=== PATIENT | male | born 1960 | race Caucasian/White ===

== ENCOUNTER 2017-12-10 10:01 | Outpatient (CLI) | payer OTHER, SELFPAY ==
[2017-12-10 12:10] LABS: ALT 45 U/L (12-78); AST 19 U/L (15-37); Albumin 3.9 g/dL (3.4-5.0); Alkaline Phosphatase 57 U/L (46-116); Anion Gap 6.9 mmol/L (3-11); BUN 17 mg/dL (7-18); Bilirubin, Total 0.4 mg/dL (0.2-1.0); CO2 29.1 mmol/L (21.0-32.0); CREATININE 0.94 mg/dL (0.70-1.30); Calcium 8.8 mg/dL (8.5-10.1); Chloride 104 mmol/L (98-107); Cholesterol 159 mg/dL (50-200); Glucose 96 mg/dL (70-100); HDL Cholesterol 60 mg/dL (40-60); LDL CHOLESTEROL 90 mg/dL (<100); Potassium 4.8 mmol/L (3.5-5.1); Sodium 140 mmol/L (136-145); Total Protein 6.9 g/dL (6.4-8.2); Triglyceride 73 mg/dL (30-150)
== END 2017-12-10 10:21 ==
PROVIDERS: PCP Family Medicine; Visit Provider Family Medicine
DX: Z00.00 Encounter for general adult medical examination without abnormal findings (principal)
CPT/HCPCS: 36415; 80053; 80061; 83721

== ENCOUNTER 2018-12-21 02:39 | Outpatient (CLI) | payer OTHER, SELFPAY ==
[2018-12-21 08:40] LABS: ALT 26 U/L (16-63); AST 13 U/L (15-37); Albumin 3.7 g/dL (3.4-5.0); Alkaline Phosphatase 48 U/L (46-116); Anion Gap 6.9 mmol/L (3-11); BUN 15 mg/dL (7-18); Bilirubin, Total 0.4 mg/dL (0.2-1.0); CO2 30.1 mmol/L (21.0-32.0); CREATININE 0.96 mg/dL (0.70-1.30); Calculated LDL 97 mg/dL; Chloride 106 mmol/L (98-107); Cholesterol 167 mg/dL (50-200); Glucose 103 mg/dL (70-100); HDL Cholesterol 53 mg/dL (40-60); Potassium 4.8 mmol/L (3.5-5.1); Sodium 143 mmol/L (136-145); Total Protein 6.6 g/dL (6.4-8.2); Triglyceride 85 mg/dL (30-150)
== END 2018-12-21 02:59 ==
PROVIDERS: PCP Family Medicine; Visit Provider Family Medicine
DX: Z00.00 Encounter for general adult medical examination without abnormal findings (principal); E78.00 Pure hypercholesterolemia, unspecified
CPT/HCPCS: 36415; 80053; 80061

== ENCOUNTER 2019-02-22 11:03 | Day surgery (SDC) | payer OTHER, SELFPAY ==
--- NOTE | 2019-02-22 06:59 | W.COLOREPORT ---
Date of service: 02/22/19 Time of Service: 12:16 Colonoscopy Report Date of procedure: 02/22/19 Pre-op diagnosis general: Colon CAncer Screening Post-op diagnosis procedure note: other (Polyps, diverticulosis, internal hemorrhoids) Procedure: Colonoscopy with polypectomy by hot snare and cold forceps Surgeon: Ariela Holley Anesthesia proc note operative: other (General/ ASA 3/Irvin Hinkle, URIEL) Estimated blood loss (mL): 5 Pathology: other (Ascending polyps x4, Large polyp at 35 cm, rectal polyp) Complications: None Disposition: same day Indications: The patient is here for Colonoscopy pre-op. He has no family history of colon cancer. He has not had any bowel habit changes. -Discussed colonoscopy bowel prep as well as the procedure. Discussed possible complications of the procedure to include bleeding, pain, perforation, missed small lesion/polyp, sore throat, aspiration and adverse reaction to the medications. Questions were answered to patient?s satisfaction. No guarantees were implied or given. Prep: Miralax/Dulcolax Procedure Start Time: 12:16 Procedure End Time: 13:11 Retraction Time: 48 minutes Findings: 4 small sessile polyps in the ascending polyp Large 3 cm pedunculated polyp at 35 cm rectal polyp <10 mm Procedure Description: After informed consent was obtained the patient was taken to the procedure room and placed in a left decubitous position. Monitors were applied and a time out was done. The patients name, date of , procedure, allergies to medications and metal in their body was reviewed. The patient was then sedated. Once sedated and comfortable a rectal exam was done. External exam was normal. Internal exam revealed a normal sphincter tone and no palpable masses. The prostate felt smooth. The scope was then introduced and retro-flexed. Grade 1 internal hemorrhoids were identified as well as a rectal polyp and blood. The scope was then advanced to the cecum with some difficulty. The patient kept becoming bradychardic and was given Robinal. The TI and appendiceal orifice were identified. The prep was adequate. The scope was then slowly retracted over 48 minutes back into the rectum. Polyps were removed with cold forceps in the ascending colon and rectum. The large polyp was removed in 2 pieces with a hot snare and the mucosa was injected with blue dye. The scope was removed and the patient was woken up and taken back to Same day surgery in stable condition. The patient tolerated the procedure well and there were no immediate complications. Follow up: Follow up will be dependant on the final pathology.
--- NOTE | 2019-02-22 07:00 | W.PM.DSUDISC ---
Discharge Plan Disposition Patient Disposition: HOME Condition: Good Discharge Details Reason For Visit: Colon Cancer screening Attending Provider: Ariela Holley Primary Care Provider: Johann Donald Home Meds and New Rx's Prescriptions: Continued atorvastatin [Lipitor] 10 mg tablet 10 mg PO DAILY Qty: 90 RF: 3 sildenafil [Viagra] 100 mg tablet 100 mg PO PRN MDD 2 tabs Qty: 10 RF: 11 clotrimazole 1 % cream 1 applic TP BID PRN (Reason: rash) Qty: 45 RF: 0 Discontinued polyethylene glycol 3350 17 gram/dose powder 238 g PO ONCE Qty: 238 RF: 0 bisacodyl [Dulcolax (bisacodyl)] 5 mg tablet,delayed release (DR/EC) 5 mg PO ONCE Qty: 4 RF: 0 Discharge Instructions Instructions: Colonoscopy (DC), Colorectal Polyps (DC), Diverticulosis (DC), Hemorrhoids (DC) Additional Instructions: Findings: internal hemorrhoids Multiple polyps Diverticulosis Follow up: depends on pathology results Please call if you develop: fevers >101.5 Nausea or Vomiting Abdominal pain that is not transient DAY SURGERY UNIT POST ENDOSCOPY INSTRUCTIONS 1. Because there will be medication in your system for the next 24 hours, you may feel a little sleepy. Your coordination will be affected. Therefore: a. Do not drive or operate dangerous equipment for 24 hours. b. Do not drink alcohol beverages for 24 hours (not even beer). c. Plan to go home and rest for the day. 2. Generally there are no restrictions on your activity after a day or so has gone by, but you may feel a bit fatigued for a few days. 3 After you arrive home you may have a light meal and return to a normal diet as you can tolerate it without feeling sick to your stomach. 4. After surgery, you may feel pain or discomfort. This should be only transient, but if it persists please contact your doctor. 5. If there are any questions regarding the findings of your procedure, please feel free to contact your doctor. 6. If you are unable to contact your doctor with a problem, contact the hospital at [phone]. 7. Continue all your regular medications unless directed otherwise. I understand the above instructions and have no questions. Signature of Patient or Responsible Adult Escort Date/Time Name of Responsible Adult Escort Signature of Nurse Date/Time Activity:: Activity as Tolerated Diet:: As Tolerated Discharge Orders Discharge Orders: Discharge Order (Routine); Ordered 02/22/19 Ordered By: Ariela Holley DS: Diagnosis Discharge Diagnosis (1) S/P colonoscopy: Status: Acute (2) Colorectal polyps: Status: Acute (3) Internal hemorrhoids without complication: Status: Inactive
[2019-02-22 11:27] VITALS: BP 140/68; PULSE 60; RESP 16; TEMP 36.8; O2SAT 98
[2019-02-22] MEDS: Lactated Ringers 1,000 ML 80 ML IV (11:54)
--- NOTE | 2019-02-22 12:25 | BOWEL_PTH ---
PATIENT: Bolivar Connors LOC: [facility] U#:[id number] AGE/SX: 58/M ROOM: RE02/22/[address]: Ariela Holley MD : 1960 BED: DIS: 02/22/2019 SPEC #: [id number] RECD: 02/22/19 17:23 STATUS: RASHEL RE #: [id number] CHARLEEN: 02/22/19 12:[address]: Ariela Holley DEPT: Surgical Specimen RECD BY: Buffy Atwood ENTERED: 02/22/19 17:25 SP TYPE: Bowel OTHR DR: Johann Donald MD Tissues: 1 - BIOPSY BOWEL 2 - BIOPSY BOWEL 3 - BIOPSY BOWEL Procedures: GROSS AND MICRO LEVEL 4 Comments: [id number]
[2019-02-22] MEDS: Endoscopic Tattoo 5 ML SYR IJ (12:47)
[2019-02-22 13:55] VITALS: BP 144/69; PULSE 58; RESP 16; TEMP 36.4; O2SAT 99
== END 2019-02-22 14:10 | disposition home or self-care (01) ==
LOC: SUR 11:03
PROVIDERS: PCP Family Medicine; Visit Provider Surgery
PROC: 0DJD8ZZ Inspection of Lower Intestinal Tract, Via Natural or Artificial Opening Endoscopic (ICD-10-PCS; CPT 45378; principal; 2019-02-22 12:15)
DX: Z12.11 Encounter for screening for malignant neoplasm of colon (principal); D12.2 Benign neoplasm of ascending colon; D12.6 Benign neoplasm of colon, unspecified; K62.1 Rectal polyp; K57.30 Diverticulosis of large intestine without perforation or abscess without bleeding; K64.0 First degree hemorrhoids; R00.1 Bradycardia, unspecified
CPT/HCPCS: 45385; 45380; 45381; 88305

== ENCOUNTER 2019-12-20 13:15 | Outpatient (REF) | payer OTHER, SELFPAY ==
[2019-12-20 14:02] LABS: HCT 45.5 % (40.0-50.0); HGB 15.2 g/dL (13.5-17.5); MCH 29.5 pg (27.0-33.0); MCHC 33.4 % (32.0-36.0); MCV 88.2 fL (80-95); MPV 11.7 fL (8.0-11.0); Platelet Count 233 10^3/uL (130-400); RBC 5.16 10^6/uL (4.36-5.78); RDW 12.3 % (11.8-14.1); RDW-SD 39.6 fL; WBC 8.18 10^3/uL (4.4-10.8)
[2019-12-20 14:17] LABS: ALT 34 U/L (16-63); AST 15 U/L (15-37); Albumin 4.2 g/dL (3.4-5.0); Alkaline Phosphatase 53 U/L (46-116); Anion Gap 10.6 mmol/L (3-11); BUN 17 mg/dL (7-18); Bilirubin, Total 0.6 mg/dL (0.2-1.0); CO2 27.4 mmol/L (21.0-32.0); Calculated LDL 116 mg/dL (<100); Chloride 104 mmol/L (98-107); Cholesterol 206 mg/dL (<200); Glucose 98 mg/dL (74-106); HDL Cholesterol 59 mg/dL (40-60); Potassium 4.5 mmol/L (3.5-5.1); Sodium 142 mmol/L (136-145); Total Protein 7.7 g/dL (6.4-8.2); Triglyceride 156 mg/dL (<150)
== END 2019-12-20 13:35 ==
LOC: LBN 13:15
PROVIDERS: PCP Family Medicine; Visit Provider Family Medicine
DX: Z00.00 Encounter for general adult medical examination without abnormal findings (principal); E78.00 Pure hypercholesterolemia, unspecified
CPT/HCPCS: 80053; 80061; 85027

== ENCOUNTER 2020-04-13 01:55 | Outpatient (CLI) | payer OTHER, SELFPAY ==
[2020-04-14 15:31] LABS: COVID-19 RT-PCR UVMMC Result Negative (Negative)
== END 2020-04-13 01:56 | disposition home or self-care (01) ==
LOC: LBO 01:55
PROVIDERS: PCP Family Medicine; Visit Provider Surgery
DX: Z20.822 Contact with and (suspected) exposure to COVID-19 (principal); Z01.818 Encounter for other preprocedural examination
CPT/HCPCS: U0003

== ENCOUNTER 2020-04-17 07:08 | Day surgery (SDC) | payer OTHER, SELFPAY ==
--- NOTE | 2020-04-17 06:49 | W.COLOREPORT ---
Date of service: 04/17/20 Time of Service: 08:32 Colonoscopy Report Date of procedure: 04/17/20 Pre-op diagnosis general: Hx of colon polyps Post-op diagnosis procedure note: same (multiple polyps) Procedure: Colonoscopy with polypectomy Surgeon: Ariela Holley Anesthesia proc note operative: other (General/ASA 3/Jorge Bright CRNA) Estimated blood loss (mL): 3 Pathology: other (Transverse polyp, descending polyp, descending bx, rectal polyps x6) Complications: None Disposition: same day Indications: The patient is here for Colonoscopy pre-op. His last screening was in 2019 and was remarkable for tubular adenomatous and tubular . He has no family history of colon cancer. He has not had any bowel habit changes. -Discussed colonoscopy bowel prep as well as the procedure. Discussed possible complications of the procedure to include bleeding, pain, perforation, missed small lesion/polyp, sore throat, aspiration and adverse reaction to the medications. Questions were answered to patient?s satisfaction. No guarantees were implied or given. Prep: Miralax/Dulcolax Procedure Start Time: :32 Procedure End Time: 09:07 Retraction Time: 22 minutes Findings: multiple polyps. Inflammation around the area of previous polypectomy for tubulovillous adenoma Procedure Description: After informed consent was obtained the patient was taken to the procedure room and placed in a left decubitous position. Monitors were applied and a time out was done. The patients name, date of , procedure, allergies to medications and metal in their body was reviewed. The patient was then sedated. Once sedated and comfortable a rectal exam was done. External exam was normal. Internal exam revealed a normal sphincter tone and no palpable masses. I was unable to feel the prostate due to the patients body habitus. The scope was then introduced and retro-flexed. No internal hemorrhoids, polyps or masses were identified on retro-flexion. The scope was then advanced to the cecum with difficulty due to 2 episodes of bradycardia. The patient was given 1 dose of Atropine. The ileocecal valve and appendiceal orifice were identified. The prep was good. The scope was then slowly retracted over 22 minutes back into the rectum. Polyps were removed with a hot snare of the Transverse colon x1, with cold forceps in the descending colon x1 and rectum x6. A biopsy was done of the area were the tubulovillous adenoma in 2019. There was not avisible polyp but there was some acute inflammation. There was no diverticulosis noted. The scope was removed and the patient was woken up and taken back to Same day surgery in stable condition. The patient tolerated the procedure well and there were no immediate complications. Follow up: Follow up will depend on final pathology results.
--- NOTE | 2020-04-17 06:50 | W.PM.DSUDISC ---
Discharge Plan Disposition Patient Disposition: HOME Condition: Good Discharge Details Reason For Visit: Colonoscopy Attending Provider: Ariela Holley Primary Care Provider: Johann Donald Home Meds and New Rx's Prescriptions: Continued sildenafil [Viagra] 100 mg tablet 100 mg PO PRN MDD 2 tabs Qty: 10 RF: 11 atorvastatin [Lipitor] 10 mg tablet 10 mg PO DAILY Qty: 90 RF: 3 Discontinued polyethylene glycol 3350 17 gram/dose powder 238 g PO ONCE Qty: 238 RF: 0 bisacodyl [Dulcolax (bisacodyl)] 5 mg tablet,delayed release (DR/EC) 5 mg PO ONCE Qty: 4 RF: 0 Discharge Instructions Instructions: Colorectal Polyps (DC) Additional Instructions: Findings: 8 polyps Follow up: will depend on final pathology Please call if you develop: fevers >101.5 Nausea or Vomiting Abdominal pain that is not transient DAY SURGERY UNIT POST ENDOSCOPY INSTRUCTIONS 1. Because there will be medication in your system for the next 24 hours, you may feel a little sleepy. Your coordination will be affected. Therefore: a. Do not drive or operate dangerous equipment for 24 hours. b. Do not drink alcohol beverages for 24 hours (not even beer). c. Plan to go home and rest for the day. 2. Generally there are no restrictions on your activity after a day or so has gone by, but you may feel a bit fatigued for a few days. 3 After you arrive home you may have a light meal and return to a normal diet as you can tolerate it without feeling sick to your stomach. 4. After surgery, you may feel pain or discomfort. This should be only transient, but if it persists please contact your doctor. 5. If there are any questions regarding the findings of your procedure, please feel free to contact your doctor. 6. If you are unable to contact your doctor with a problem, contact the hospital at [phone]. 7. Continue all your regular medications unless directed otherwise. I understand the above instructions and have no questions. Signature of Patient or Responsible Adult Escort Date/Time Name of Responsible Adult Escort Signature of Nurse Date/Time Activity:: Activity as Tolerated Diet:: As Tolerated Discharge Orders Discharge Orders: Discharge Order (Routine); Ordered 04/17/20 Ordered By: Ariela Holley
[2020-04-17 07:17] VITALS: BP 147/74; PULSE 61; RESP 16; TEMP 36.2; O2SAT 96
[2020-04-17] MEDS: Lactated Ringers 1,000 ML 80 ML IV (07:42)
--- NOTE | 2020-04-17 08:55 | BOWEL_PTH ---
PATIENT: Bolivar Connors LOC: [facility] U#:[id number] AGE/SX: 59/M ROOM: RE04/17/[address]: Ariela Holley MD : 1960 BED: DIS: 04/17/2020 SPEC #: [id number] RECD: 04/17/20 12:50 STATUS: RASHEL RE #: [id number] CHARLEEN: 04/17/20 08:[address]: Ariela Holley DEPT: Surgical Specimen RECD BY: Buffy Atwood ENTERED: 04/17/20 12:52 SP TYPE: Bowel OTHR DR: Johann Donald MD Tissues: 1 - BIOPSY BOWEL 2 - BIOPSY BOWEL 3 - BIOPSY BOWEL 4 - BIOPSY BOWEL Procedures: GROSS AND MICRO LEVEL 4 Comments: [id number]
[2020-04-17 09:30] VITALS: BP 148/80; PULSE 61; RESP 16; TEMP 36.5; O2SAT 96
== END 2020-04-17 09:50 | disposition home or self-care (01) ==
LOC: SUR 07:08
PROVIDERS: PCP Family Medicine; Visit Provider Surgery
PROC: 0DJD8ZZ Inspection of Lower Intestinal Tract, Via Natural or Artificial Opening Endoscopic (ICD-10-PCS; CPT 45378; principal; 2020-04-17 08:30)
DX: Z12.11 Encounter for screening for malignant neoplasm of colon (principal); Z86.010 Personal history of colon polyps; D12.3 Benign neoplasm of transverse colon; K62.1 Rectal polyp; I97.791 Other intraoperative cardiac functional disturbances during other surgery; R00.1 Bradycardia, unspecified; Y83.8 Other surgical procedures as the cause of abnormal reaction of the patient, or of later complication, without mention of misadventure at the time of the procedure; E66.9 Obesity, unspecified
CPT/HCPCS: 45385; 45380; 88305; J2001

== ENCOUNTER 2020-08-11 14:51 | Outpatient (CLI) | payer OTHER, SELFPAY ==
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
== END 2020-08-11 15:11 ==
PROVIDERS: PCP Family Medicine; Visit Provider Nurse Practitioner Family
DX: M25.511 Pain in right shoulder (principal); S40.011A Contusion of right shoulder, initial encounter; W19.XXXA Unspecified fall, initial encounter
CPT/HCPCS: 73030

== ENCOUNTER 2020-10-12 02:05 | Outpatient (CLI) | payer OTHER, SELFPAY ==
--- NOTE | 2020-10-12 06:30 | DI.MRI_ITS ---
Exam(s) MR UPPER JOINT RT WO EXAM: MR UPPER JOINT RT WO CLINICAL HISTORY: R SHOULDER PAIN,TRAUMATIC TEAR RT ROTATOR CUFF,STRAIN,M25.511,S46.011A TECHNIQUE: Multiplanar multisequence MRI of the shoulder was performed. COMPARISON: CR XR SHOULDER RT COMPLETE 2+V from 08/11/2020 CR XR SHOULDER RT COMPLETE 2+V from 08/11/2020 . those plain films revealed a nonacute healed mid right clavicle fracture. FINDINGS: MARROW:There is no evidence of fracture, Hill-Sachs deformity, nor ominous osseous lesions. No eviden ce of bony Bankart lesion. There is a degenerative subarticular cyst in the greater tuberosity noted ROTATOR CUFF MECHANISM: AC JOINT/ACROMIUM: There are moderate degenerative changes in the AC joint. Degenerative subarticula r cysts noted on the acromial side as well as undersurface osteophytes and hypertrophy tissue. Eleme nt of impingement. The undersurface of the acromion is flat. No impingement hook.. There is no evidence of os acromiale. Supraspinatus: There is a large full-thickness tear of the supraspinatus with retraction of the tendo n to the medial 3rd of the humeral head, this leaving large bare area with continuity of fluid betwee n the glenohumeral joint and subacromial bursa space. There is mild fatty atrophy in the supraspinat us. Infraspinatus: There is also full-thickness tearing of the infraspinatus. Only the more posterior te ndon aspect is reaching the greater tuberosity. There is also fatty atrophy of this muscle evident. Teres Minor: Intact. No evidence of tear nor muscle atrophy. Muscle appears more prominent than typ ical, most probably compensatory. Subscapularis/anterior cuff: Partial tearing of the multipennate insertional tendon fibers. No retra ction. BICEPS TENDON: The biceps tendon is situated within the intertubercular groove but appears somewhat p erched on the lesser tuberosity. There is fluid in the sheath. LABRUM: No labral tear identified. No evidence of paralabral cyst. GLENOHUMERAL JOINT: Moderate-prominent joint effusion which extends into the medial recess and down t he biceps tendon sheath as well as into the diminished subacromial space. Minimal degenerative cartil age changes. No evidence of degenerative subarticular cysts in the osseous glenoid. Inferior glenohum eral ligament is intact. QUADRILATERAL SPACE: No evidence of mass in the region of the axillary nerve and dorsal circumflex hu meral vessels. Visualized triceps muscle at this level appears unremarkable. IMPRESSION: 1. Full-thickness tears of supraspinatus and infraspinatus as described above. Compensatory prominent of the teres minor. Partial tearing at the insertion of the subscapularis. Its attachment appears in tact at the lesser tuberosity but there is some abnormal signal at the level of the transverse ligame nt. 2. Biceps tendon appears intact but somewhat perched at the lesser tuberosity although this may be ex aggerated by the patient's position of the humeral head which is slightly internally rotated. 3. No labral tears evident. No evidence of paralabral cyst. 4. Moderate-large joint effusion which extends down the biceps tendon sheath and into the medial rece ss. Also in continuity with the subacromial space due to the large bare area related to the retracted tendon of the torn supraspinatus. 5. Degenerative changes in the AC joint evident. DATA REPOSITORY:
== END 2020-10-12 02:25 ==
PROVIDERS: PCP Family Medicine; Visit Provider Student in an Organized Health Care Education/Training Program
DX: S46.011A Strain of muscle(s) and tendon(s) of the rotator cuff of right shoulder, initial encounter; M19.011 Primary osteoarthritis, right shoulder; M25.411 Effusion, right shoulder; X58.XXXA Exposure to other specified factors, initial encounter
CPT/HCPCS: 73221

== ENCOUNTER 2020-11-08 02:29 | Outpatient (CLI) | payer OTHER, SELFPAY ==
[2020-11-08 10:55] LABS: Source Nasal/Nares
[2020-11-08 13:24] LABS: COVID-19 PCR Negative (Negative)
== END 2020-11-08 02:30 | disposition home or self-care (01) ==
PROVIDERS: PCP Nurse Practitioner Family; Visit Provider Student in an Organized Health Care Education/Training Program
DX: Z20.822 Contact with and (suspected) exposure to COVID-19 (principal); Z01.818 Encounter for other preprocedural examination
CPT/HCPCS: 87635

== ENCOUNTER 2020-11-10 06:54 | Day surgery (SDC) | payer OTHER, SELFPAY ==
[2020-11-10] VITALS (8 sets, daily range): BP systolic 98–156; BP diastolic 44–75; PULSE 58–63; RESP 16–20; TEMP 36.2–36.6; TEMPC 36.4; O2SAT 94–97; BMI 44.5
--- NOTE | 2020-11-10 06:52 | ANES.PREOP_ITS ---
General Info Date of Service Date Performed: 11/10/20 Height: 5 ft 8 in Weight: 132.959 kg Body Mass Index (BMI): 44.5 Surgical Procedure: Operation Date: 11/10/20 09:55 Proposed Procedures Side Surgeon p Shoulder Arthroscopy with extensive debridement,biceps tenodesis,subacromial decompression,distal clavicle excision,RTC repair and possible allograft super ior capsular reconstruction Right Gonzalo Bowles MD Meds Allergies and Home Medications Allergies Allergy/AdvReac Type Severity Reaction Status Date / Time LORENZO Inhibitors AdvReac cough Verified 11/10/20 07:21 Home Medication Medication Instructions Recorded atorvastatin 10 mg tablet 10 mg PO DAILY #90 tab-cap 12/20/19 losartan 100 mg tablet 100 mg PO DAILY #90 tab 09/22/20 amlodipine 10 mg tablet 10 mg PO DAILY #90 tab 11/03/20 Current Visit Medications: Current Medications Generic Name Dose Route Start Last Admin Trade Name Freq PRN Reason Stop Dose Admin Ringer's Solution 1,000 mls @ 100 mls/hr 11/10/20 06:00 IV 12/09/20 23:59 INFUSION KADEN Cefazolin Sodium 3,000 mg/ 100 mls @ 200 mls/hr 11/10/20 06:00 Sodium Chloride IVPB 11/10/20 23:59 PREOP KADEN IV Miscellaneous Supplies 1 each 11/10/20 06:00 Iv Access IV 12/09/20 23:59 DIRECTED KADEN Sodium Chloride 0 ml 11/10/20 06:00 Normal Saline Flush 10 Ml Syr IV 12/09/20 23:59 PRN PRN Sodium Chloride 0 ml 11/10/20 06:00 Normal Saline 10 Ml Vial IJ 12/09/20 23:59 DIRECTED PRN Sterile Water 0 ml 11/10/20 06:00 Water,Injection,Sterile 10 Ml Vial IJ 12/09/20 23:59 DIRECTED PRN PFSH Active Problems Active Problems: Problem Status Onset Code Cough R05 Tendonitis of long head of biceps brachii of right shoulder M75.21 Arthritis of right acromioclavicular joint M19.011 Bursitis of right shoulder M75.51 Traumatic tear of right rotator cuff S46.011A Hypertension I10 Tubular adenoma of colon D12.6 Hyperplastic colon polyp K63.5 Colorectal polyps K63.5 Erectile dysfunction 10/31/14 N52.9 Hypercholesterolemia E78.00 Obesity 09/23/12 E66.9 Impingement syndrome of right shoulder M75.41 Knee pain M25.569 S/P colonoscopy ~02/22/19 Z98.890 Medical History Medical History Diverticulosis large intestine w/o perforation or abscess w/o bleeding Erectile dysfunction (10/31/14) Hypercholesterolemia Obtain CMP lipid panel. Refill atorvastatin. Impingement syndrome of right shoulder Patient will start taking ibuprofen 200 mg OTC 3 p.o. 3 times daily for the next 7-10 days along with ice therapy. If symptoms persist or worsen he is to return to the clinic for intra-articular corticosteroid injection. Internal hemorrhoids without complication Knee pain Obesity (09/23/12) Surgical History Surgical History S/P colonoscopy (~02/22/19) 02/25 - tubular adenoma, tubulovillous adenoma Tobacco Smoking/Tobacco Use Status: Never Passive smoking exposure: No Second hand exposure: No Alcohol Alcohol Intake: current Alcohol intake frequency: 0-2 drinks per day Alcohol type: hard liquor Substance Use Substance use: Never Substance use type: does not use Vital Signs and Lab Results Lab Results Blood Type / Crossmatch: No Data to Display Complete Blood Count: No Data to Display Complete Metabolic Panel: No Data to Display Liver Function Panel: No Data to Display Coagulation Panel: No Data to Display Cardiac Panel: No Data to Display Arterial Blood Gas: No Data to Display Venous Blood Gas: No Data to Display Pancreas Panel: No Data to Display Thyroid Panel: No Data to Display Infectious Disease: Coronavirus (COVID-19)(PCR) Negative (Negative) 11/08/20 08:45 11/08/20 Coronavirus 2019 Source Nasal/Nares 11/08/20 08:45 11/08/20 Blood Cultures: No Data to Display Toxicology Panel: No Data to Display Anesthesia Assessment and Plan Anesthesia History Personal History: No History of Anesthesia Complications Family History: No Family History of Anesthesia Complications Exercise Tolerance Exercise Tolerance: Metabolic Equivalents>4 Pertinent Negatives Pertinent Negatives: No Symptoms of GERD, No Major Cardiovascular Symptoms or Complaints, No Major Pulmonary Symptoms or Complaints and No History of CVA/TIA Cardiac & Pulmonary Exam Cardiac Exam: Normal S1/S2 Heart Sounds Pulmonary Exam: Clear Bilateral Breath Sounds Airway Exam Known Difficult Airway: No Mallampati Class: 2 Mouth Opening: Normal (> 3cm) Thyromental Distance: Greater than 3 cm Neck Range of Motion: Full ROM Neck Circumference: Normal Teeth Condition: Normal Dentition ASA Classification ASA Score: ASA 3 Emergency Case?: No NPO Status NPO Status: NPO Clears >2 hours, Solids >8 hours Anesthesia Plan Resuscitation Status: Full Code Anesthesia Technique: General Anesthesia Airway Planned: Endotracheal Tube Pain Management: Surgeon and patient request nerve block Monitors Used: Standard Monitors Preoperative Comments:: 60 yo male for shoulder arthroscopy. PMHx HTN (Losartan and amlodipine - just increased from 5-10 mg daily), never smoker, recent cough thought to be allergies vs resolved viral process. Previous anesthesia for colonoscopy with glyco on one and then atropine with the other. Notes indicate that asystole with colonoscope advancement. Also noted that green tinged secretions on pillow on the end, d/c'd home without issues.
[2020-11-10] MEDS: Lactated Ringers 1,000 ML 100 ML IV (07:51)
[2020-11-10] MEDS: ceFAZolin 3,000 MG in Normal Saline 100 ML 200 MG IVPB (10:32)
--- NOTE | 2020-11-10 11:29 | W.ANESNERVE ---
Nerve Block Single Injection Procedure Date and Time Date Performed: 11/10/20 Procedure Start: 10:26 Location Where Procedure Performed Procedure Location: PACU Reason Performed: Postoperative Analgesia Requesting Provider: Gonzalo Bowles Timeout Performed Timeout Performed: Yes Monitoring Used ECG, Blood Pressure and SpO2 Sterility Sterility: Hand Hygiene, Surgical Cap, Surgical Mask, Sterile Gloves and Chlorhexidine Sedation Given During Procedure Sedation Given (Indicate Dose Given): Versed IV Dose:: 2mg Patient Mental Status Patient Mental Status: Awake Nerve Block 1st Nerve Block: Laterality: Right Block Type: Interscalene Needle / Catheter Used: 100mm SonoPlex II Local Anesthetic Bolus (Indicate Dose Given): Lidocaine used for local infiltration of skin, Injected in 3-5ml increments after negative blood aspiration, Bupivacaine 0.5% Dose:: 10mL and Exparel Dose:: 10mL Additives (Indicate Dose Given): None Ultrasound: Sterile probe cover and gel used Ultrasound Image Saved?: Yes Nerve Stimulator: Not Used Paresthesia: None Procedure Tolerated: No Complications and Patient tolerated well Procedure Outcome: Successful Performed By: Vicki Gonzalez Supervised By: Jorge Chand
--- NOTE | 2020-11-10 14:02 | W.PM.DSUDISC ---
Discharge Plan Disposition Patient Disposition: HOME Condition: Stable Discharge Details Reason For Visit: Right shoulder surgery Attending Provider: Gonzalo Bowles Primary Care Provider: Gigi Jade Home Meds and New Rx's Prescriptions: New naproxen 250 mg tablet 250 - 500 mg PO BID PRN (Reason: Moderate pain or swelling) Qty: 60 RF: 0 aspirin 81 mg tablet,delayed release (DR/EC) 81 mg PO DAILY 14 Days Qty: 14 RF: 0 oxycodone 5 mg tablet 5 - 10 mg PO Q4H PRN (Reason: moderate to severe pain) Qty: 18 RF: 0 Continued atorvastatin [Lipitor] 10 mg tablet 10 mg PO DAILY Qty: 90 RF: 3 losartan 100 mg tablet 100 mg PO DAILY Qty: 90 RF: 4 amlodipine 10 mg tablet 10 mg PO DAILY Qty: 90 RF: 4 Discharge Instructions Additional Instructions: Surgery: Shoulder arthroscopy with massive rotator cuff repair, biceps tenodesis, extensive debridement, subacromial decompression, and distal clavicle excision. Activity: You should keep your arm at your side in a neutral position at all times except for physical therapy. Do not try to lift or raise your arm using your own muscles. You should use the sling whenever you are up or out of the house for 8 weeks. You may have to adjust the abduction pillow or remove it for comfort. At home it is best to remove the sling and rest the arm on a pillow at your side or support the operative side with your other hand. A physical therapy prescription will be sent electronically to begin in about 3 weeks. CONSERVATIVE protocol. Gentle range of motion. Passive?only ROM for 8 weeks. Prescriptions: Aspirin 81 mg take 1 daily to prevent a blood clot for 2 weeks Naproxen 250 mg take 1-2 every 12 hours with a meal as needed for moderate pain Oxycodone 5 mg take 1-2 every 4-6 hours as needed for severe pain You may use [id number] Tylenol (acetaminophen) as needed for mild pain. These pain medications may be taken all at once or in different combinations as needed. Also, recommend Colace (docusate) as a stool softener as surgery and pain medicine cause constipation. Dressings: Remove shoulder bandage after 3 days. Leave the sticky Steri-Strips in place until they fall off or remove them after you shower. Cover the incisions with Band-Aids or leave them open to air. You may shower after 5 days. Follow-up: 10-[address] Bowles (11/22/20 at 8AM) You may take off the leg compression stockings this evening at home. You may also leave them on a few days longer if you have a history of leg swelling or edema. Let us know right away if you develop any redness, drainage, fevers, chest pain, or trouble breathing. Do not drink alcohol or drive for at least 24 hours after anesthesia. Please call the office during business hours with any questions or concerns. Referrals: Gonzalo Bowles MD [ [facility] STAFF PHYSICIAN] - DS: Diagnosis Discharge Diagnosis (1) Tendonitis of long head of biceps brachii of right shoulder: Status: Acute (2) Arthritis of right acromioclavicular joint: Status: Acute (3) Bursitis of right shoulder: Status: Acute (4) Traumatic tear of right rotator cuff: Status: Acute (5) Impingement syndrome of right shoulder: Status: Acute
--- NOTE | 2020-11-10 14:09 | ROE_ITS ---
Date of service: 11/10/20 Time of Service: 12:00 Operative Note Operative Note DATE OF PROCEDURE: 11/10/20 PRE-OP DIAGNOSIS: Right: 1. Rotator cuff tear 2. LHB tendinopathy 3. Bursitis 4. Impingement 5. AC Joint arthritis POST-OP DIAGNOSIS: same PROCEDURE: Right: 1. Rotator cuff repair, CPT# 81661. This involved a massive repair of the supraspinatus and infraspinatus using anchors and sutures to reattach the rotator cuff back to the greater tuberosity. 2. Arthroscopic biceps tenodesis, CPT# 71949. This involved arthroscopically suturing and reattaching the long head of the biceps tendon to the proximal humerus at the superior margin of the bicipital groove with a screw at the correct tension. 3. Extensive debridement, CPT# 21986. This involved using arthroscopic hand instruments, power instruments, and radiofrequency instruments to release to release the long head of the biceps tendon and debride areas of labral tearing, SLAP tearing, synovitis, release the [facility] L and limited anterior capsule, and smooth chondromalacia and bone spurs about the greater tuberosity rotator cuff footprint working within the glenohumeral joint anteriorly, superiorly and posteriorly. 4. Arthroscopic distal clavicle excision, CPT# 61853. This involved arthroscopically exposing the underside of the acromioclavicular joint, smoothing out bone spurs, and removing approximately 5 mm of the distal clavicle so there was no bone left engaging the acromion. 5. Subacromial decompression with partial acromioplasty, CPT# 98048. This involved using arthroscopic power instruments and a radiofrequency wand to complete a bursectomy and remove bone spurs on the undersurface of the acromion. The office services assistant was medically required in order to help assist in techniques above, which require positioning the arm, holding the arthroscope, and manipulating multiple instruments and sutures at the same time. This cannot be done without the help of an experienced office services assistant. SURGEON: Gonzalo Bowles DIRECTOR DIGITAL ANALYTICS: Heide Mcgee ANESTHESIA TYPE: General LMA/ETT and Primary Nerve Block Refer to Anesthesia Record ESTIMATED BLOOD LOSS: 15 PATHOLOGY: none sent COMPLICATIONS: None Patient was transported to: PACU Patient's condition: stable Implants: Arthrex: 4.75mm SwiveLocks x 4 Indications: The patient was diagnosed with the above conditions and appropriately indicated for surgical intervention. Please see complete medical record for details. Findings: Exam under anesthesia: Moderately restricted external rotation and forward elevation. Stable. Glenohumeral joint: Profound synovitis anteriorly and superiorly. Intra-articul ar biceps injection and degenerative type SLAP tear. Labral fraying anteriorly and posteriorly. Displaced medially SG HL and CHL with slight medial subluxation of the biceps tendon. Subscapularis intact to lesser tuberosity with small longitudinal in line upper third split between otherwise stable fibers. Superior rotator cuff completely devoid and retracted to the level of the glenoid. Intact far posterior likely teres rotator cuff. Subacromial space: Significant bursitis. Moderate undersurface acromial bone spur. Moderate impinging distal clavicle acromion joint with significant distal clavicle inferior underhand. Delaminated supraspinatus significantly retracted rotator cuff tear about the level of the glenoid involving anterior interval tissue past the bicipital groove. Early rotator cuff arthropathy changes with evidence of bone on bone articulation acromion and greater tuberosity with bone irregularities and scar tissue about the greater tuberosity. Tear between the supraspinatus and infraspinatus. Infraspinatus with moderate retraction almost to the glenoid and significant hemorrhagic and degenerative changes. Procedure Description: In the operating room, general anesthesia was induced. Bilateral shoulders were examined. The patient was positioned in the beachchair position. All bony prominences were well-padded. Preoperative antibiotics were administered. The shoulder was prepped and draped in the usual sterile fashion. The correct patient, procedure, and side of the procedure were all verified prior to incision. Starting through the posterior portal a standard complete diagnostic arthroscopy was performed of the glenohumeral joint including inspection of the long head of the biceps, anterior and superior labrum, subscapularis tendon, supraspinatus and infraspinatus tendons, and axillary recess. The glenoid and humeral head cartilage as well as the posterior labrum were inspected from an anterior viewing portal. Cannulas were inserted at the superior anterior lateral and lateral margins of the acromion. Significant findings and interventions noted above. The subscapularis was probed and felt to be stable to the lesser tuberosity. The small inline split at the upper lateral margin was minimally debrided and did not require repair. The rotator cuff was thoroughly inspected anteriorly centrally and posteriorly in various arm positions. Rotator cuff graspers, liberator's, elevators, and the mechanical shaver used to debride friable tissue and bursa for planned repair. The rotator cuff demonstrated reasonable excursion just past the medial tuberosity footprint so the decision was made to proceed with massive rotator cuff repair instead of superior capsular reconstruction. An all-arthroscopic suprapectoral biceps tenodesis was performed through an anterior portal using a Loop N Tack method with a SutureTape FiberLink cinched around and through the tendon. The biceps was tenotomized from the labrum and arm biceps squeeze to retract the biceps to the top of the groove and the sutures brought out of the way out superior anterolateral portal. Starting through the posterior portal, the arthroscope was directed into the subacromial space. A combination of power instruments and a radiofrequency ablator were used to debride bursitis anteriorly, posteriorly, and laterally as well as expose and smooth bone spurring on the undersurface of the acromion. The coracoacromial ligament was preserved. The bursectomy was completed viewing laterally and working from posteriorly and the rotator cuff was thoroughly inspected with findings noted above. An anterior portal directed at the AC joint was established. A shaver and electrocautery device were used to clear soft tissue from the undersurface of the AC joint. The distalmost 5 mm of the distal clavicle was then removed and inferior underhanging smoothed. Care was taken to ensure that proper amount of bone was removed and there was no engaging bone left behind. Additional cannula was inserted at the superior posterior lateral margin acromion and the rotator cuff tissue once again inspected and felt to be amenable to repair. There was significant retracted interval tissue likely relating to the biceps sling and SG HL and CHL thickened and scarred medially at the anterior margin of the rotator cable. The camera was redirected from posterior back into glenohumeral joint and mechanical shaver brought in to the anterior glenohumeral joint through the superior anterolateral portal and used to debride and resect this tissue to a reasonable margin as well as release the [facility] L and free of adhesions medially between the anteriormost aspect of the supraspinatus and discard anterior interval tissue. While viewing from the superior anterolateral portal mechanical shaver was then brought in posteriorly and used to complete debridement of the SLAP tear as well as posterior synovitis and debride the posterior humeral head of scar tissue. The arthroscope was brought in viewing from the superior posterior lateral portal. The rotator cuff was further mobilized and the arm positioned in moderate external rotation at the patient's side allowing for reasonable reduction of the supraspinatus covering at least 5 mm of the medial margin. The mechanical shaver was used to prepare the greater tuberosity footprint for tendon healing and perform a small tuboplasty smoothing irregularities and early bone spurs about the greater tuberosity. The bicipital groove was used as a landmark to start repair. The anterior aspect of the rotator cuff likely incorporating the rotator cable and interval tissue were each sutured using a self retrieving suture passer with a suture tape in cinch mode through the superior anterolateral portal. The arm was maintained external rotation to prevent stiffness with this repair however it was felt important to incorporate the anteriormost unstable tissue to augment repair achieve soft tissue over the greater tuberosity and prevent further rotator cuff arthropathy. The punch was used to localize placement a few millimeters off posterior and lateral to the bi cipital groove. The undersized punch was used given the chronicity of injury and relatively soft bone. A 4.75 swivel lock was used to secure the anteriormost repair as well as incorporating the biceps tenodesis suture with appropriate tension on both repairs and secure fixation of the swivel lock anchor to bone. The repair was inspected and felt to be appropriate in aid in further repair. Centrally the reduction was again confirmed with grasper before placing a fiber tape in an inverted horizontal mattress fashion using a suture lasso and grasper to incorporate both delaminated rotator cuff layers and then a second pass the self retrieving suture passer with an anterior additional cinch mode fiber link. The undersized punch was then used followed by appropriate tension and secure fixation to an additional swivel lock anchor. There is now good coverage of the central and anterior supraspinatus and soft tissue to humeral head. Posteriorly, the supraspinatus and the split between supraspinous infraspinatus was inspected. The infraspinatus had a reasonable excursion wrapping around the humeral head. The supra and infraspinatus could be well approximated using various delgado instruments and a side to side fashion. Viewing from anterior and working posterior the self retrieving suture passer and suture lasso were used to place an inverted horizontal mattress fiber tape incor porating both the laminated layers of the posterior margin of the supraspinatus as well as the infraspinatus at the appropriate level medially. An additional fiber link in cinch mode was placed in the supraspinatus and infraspinatus. The arm position was again optimized. The undersized punch used to localize placement of a suture anchor. All 4 suture tails were loaded in the suture tensioned appropriately confirming excellent side to side apposition repair of the infraspinatus supraspinatus as well as medial to lateral reduction prior to securing fixation to bone. This repair was inspected through range of motion felt to be stable. There is excellent tissue apposition coverage anteriorly posteriorly. There is reasonable single row coverage more centrally. There was about a rotator cuff grasper with of tissue not compressed to bone between the central and posterior anchors. The self retrieving suture passer could just fit through this defect so given the massive nature of this tear and the delaminated questionable tissue quality decision was made to proceed with additional repair suture anchors. The self retrieving suture passer was used to pass an inverted horizontal mattress fiber tape more medially in this more central area of the supraspinatus followed by a fiber link in cinch mode in a ripstop fashion just medial to the horizontal mattress. The sutures were brought out far lateral to a single lateral row anchor localized with the undersized punch. Care was taken to secure the anchor without placing undue tension on this additional repair. The repair was once again inspected and secure with excellent coverage of the rotator cuff given the preoperative injury. Rotator cuff repair was stable and did not restrict range of motion past 90 degrees forward elevation and 50 degrees external. The shoulder was copiously irrigated with arthroscopic fluid. Some additional bursitis was debrided far laterally the mechanical shaver as well as now medially as a repair brought additional medial tissue into view. The shoulder was drained of arthroscopic fluid. All portal sites were copiously irrigated. These incisions were closed using 3-0 Monocryl in a buried fashion and then covered with Mastisol, Steri-Strips, Xeroform, dry gauze, and ABDs. The dressings were covered and secured with Medipore tape. The operative extremity was placed into a sling for immobilization. The patient awoke from anesthesia without complication and was transferred to the recovery room in a stable condition.
[2020-11-10] MEDS: EPINEPHrine 30 MG/30 ML VIAL (14:13)
--- NOTE | 2020-11-10 14:39 | W.ANESPOSTOP ---
Postoperative Evaluation Date, Time and Location Date Performed: 11/10/20 Time Performed: 14:39 Patient Location: Day Surgery Unit Vital Signs Most Recent Imported Vital Signs: Most Recent Vital Signs Temp Pulse Resp BP Pulse Ox 36.3 C L 58 L 18 131/53 L 97 11/10/20 14:20 11/10/20 14:20 11/10/20 14:20 11/10/20 14:20 11/10/20 14:20 Most Recent Manually Entered Vital Signs: Adult Blood Pressure: 98/54 Heart Rate: 61 Respirations: 16 Oxygen Saturation (%): 94 Temperature (C): 36.4 C Pain Score (0-10 Scale): 0 Pain Score Most Recent Pain Score: Most Recent Pain Score Pain Level 5 11/10/20 14:20 Assessment Mental Status: Awake (Alert & Oriented to Patient Baseline) Airway and Respiratory Function: Patent airway with normal (patient baseline) respiratory exam Cardiovascular Function: Hemodynamically Stable Hydration Status: Adequately Hydrated Nausea & Vomiting: No Nausea or Vomiting Pain: Pt. Denies Any Pain Peripheral Nerve Block: Regional nerve block not resolved at time of post operative discharge (Block is appropriate. Patient is reporting some discomfort to distal clavicle. )
[2020-11-10] MEDS: Acetaminophen 500 MG TAB 1000 MG PO ×2 (14:55)
== END 2020-11-10 15:30 | disposition home or self-care (01) ==
PROVIDERS: PCP Nurse Practitioner Family; Visit Provider Student in an Organized Health Care Education/Training Program
PROC: (CPT 29805; principal; 2020-11-10 10:00)
DX: M75.21 Bicipital tendinitis, right shoulder (principal); M19.011 Primary osteoarthritis, right shoulder; M75.51 Bursitis of right shoulder; M75.41 Impingement syndrome of right shoulder; S46.011A Strain of muscle(s) and tendon(s) of the rotator cuff of right shoulder, initial encounter; X58.XXXA Exposure to other specified factors, initial encounter
CPT/HCPCS: 29827; 29828; 29826; 29824; 29823; L3670; J0690; J1100; J1885; J2001; J2250; J2370; J2405

== ENCOUNTER → 2021-05-28 02:05 | Outpatient (CLI) | payer OTHER, SELFPAY ==
--- NOTE | 2021-05-28 06:30 | DI.RAD_ITS ---
Exam(s) XR THORACIC SPINE COMPLETE EXAM: XR THORACIC SPINE COMPLETE CLINICAL HISTORY: S/P fall with continued thoracic pain, [id number]. TECHNIQUE: 2D digital imaging was performed. COMPARISON: No exams were available for comparison FINDINGS: 3 views There is subtle evidence of fracture of T10 vertebral body. No retropulsion. No abnormal widening o f the paraspinal lines. No prominent scoliosis. IMPRESSION: Subtle evidence of possible T10 fracture. Follow-up CT scan recommended DATA REPOSITORY: RADIATION DOSE DELIVERED:
== END ==
PROVIDERS: PCP Nurse Practitioner Family; Visit Provider Nurse Practitioner Family
DX: M54.6 Pain in thoracic spine (principal); W19.XXXA Unspecified fall, initial encounter; R93.7 Abnormal findings on diagnostic imaging of other parts of musculoskeletal system
CPT/HCPCS: 72072

== ENCOUNTER 2022-01-01 11:47 | Outpatient (CLI) | payer SELFPAY ==
--- NOTE | 2022-01-01 11:45 | RT.EKG_ITS ---
APPROVED REPORT Exam: Resting ECG Reason for Exam: HTN Patient Location: O HR:67 bpm ECG Measurements Heart Rate 67 AXIS NH 159 P 32 QRSd 96 QRS 22 QT 370 T 9 QTc 391 Conclusion Sinus rhythm...normal P axis, V-rate 50- 99 Normal Electrocardiogram
== END 2022-01-01 11:48 | disposition home or self-care (01) ==
LOC: DI.CARD 11:57
PROVIDERS: PCP Nurse Practitioner Family; Visit Provider Internal Medicine Cardiovascular Disease
DX: E66.9 Obesity, unspecified (principal); I10 Essential (primary) hypertension
CPT/HCPCS: 93010

== ENCOUNTER 2022-01-09 03:56 | Outpatient (CLI) | payer OTHER, SELFPAY ==
[2022-01-09 08:11] LABS: CREATININE 0.9 mg/dL (0.70-1.30); Estimated GFR 96.57 (mL/min/1.73m2)
== END 2022-01-09 03:57 | disposition home or self-care (01) ==
PROVIDERS: PCP Nurse Practitioner Family; Visit Provider Nurse Practitioner Family
DX: I10 Essential (primary) hypertension (principal)
CPT/HCPCS: 36415; 82565

== ENCOUNTER 2023-04-08 02:41 | Outpatient (CLI) | payer OTHER, SELFPAY ==
[2023-04-08 12:29] LABS: Hemoglobin A1C 5.5 % (<5.7)
[2023-04-08 12:30] LABS: Calculated LDL 106 mg/dL (<100); Cholesterol 186 mg/dL (<200); Estimated GFR 84.57 (mL/min/1.73m2); HDL Cholesterol 67 mg/dL (40-60); Potassium 4.2 mmol/L (3.5-5.1); Triglyceride 67 mg/dL (<150)
== END 2023-04-08 02:42 | disposition home or self-care (01) ==
PROVIDERS: PCP Nurse Practitioner Family; Visit Provider Nurse Practitioner Family
DX: Z00.00 Encounter for general adult medical examination without abnormal findings (principal); E78.00 Pure hypercholesterolemia, unspecified; Z13.1 Encounter for screening for diabetes mellitus
CPT/HCPCS: 36415; 80061; 82565; 83036; 84132

== ENCOUNTER 2024-03-01 11:27 | Outpatient (CLI) | payer OTHER, SELFPAY ==
[2024-03-01 09:56] LABS: Calculated LDL 82 mg/dL (<100); Cholesterol 171 mg/dL (<200); Estimated GFR 84.05 (mL/min/1.73m2); HDL Cholesterol 70 mg/dL (40-60); Potassium 4.7 mmol/L (3.5-5.1); Triglyceride 97 mg/dL (<150)
[2024-03-01 10:22] LABS: Hemoglobin A1C 5.6 % (<5.7)
--- OUTSIDE RECORDS SUMMARY | 2024-03-01 11:29 | XMS_ITS | Encounter Summary ---
Author Organization [facility] Address [address] [place] [address] Care Team Providers Care Stakes Player Name Role Phone Johann Donald MD Primary Care Provider Encounter Details Date Type Department Care Team (Late st Contact Info) Description 02/23/2019 Lab Requisition [facility] Pathology & Laboratory Medicine - [address] [address] Neftali Holley MD [address] [place] [id number] Encounter for screening for malignant neoplasm of colon Social History Tobacco Use Types Packs/Day Years Used Date Smoking Tobacco: Never Assessed Sex and Gender Information Value Date Recorded Sex Assigned at Not on file Legal Sex Male 8:26 EST Gender Identity Not on file Sexual Orientation Not on file documented as of this encounter Plan of Treatment Not on file documented as of this encounter Procedures Procedure Name Priority Date/Time Associated Diagnosis Comments SURGICAL PATHOLOGY Today 02/22/2019 12 :25 EST Encounter for screening for malignant neoplasm of colon documented in this encounter Results * SURGICAL PATHOLOGY (02/22/2019 12:25 EST) Final Diagnosis A. COLON, ASCENDING, POLYPS, BIOPSY: - Tubular adenomas. B. COLON, 35 CM, POLYP >2CM, POLYPECTOMY: - Tubulovillous adenoma. C. RECTUM, POLYP, BIOPSY: - Hyperplastic polyp. 02/24/2019 12:33 EST [facility] at 1233 Clinical History Colon cancer screening polyps diverticulosis. 02/24/2019 12:33 [facility] Attestation By the signature below, the attending physician certifies that they have personally conducted a gross and/or microscopic examination of the described specimens and rendered or confirmed the above diagnosis. 02/24/2019 12:33 [facility] at 1233 Gross Description A. Received in formalin labelled with proper patient identification (initials L, K) and ascending colon polyps are 3 desir tissues (0.3 x 0.1 x 0.1 cm to 0.5 x 0.2 x 0.1 cm). Entirely submitted in A1. B. Received in formalin labelled with proper patient identification (initials L, K) and polyp at 35 cm are two dark brown polypoid tissues (1.4 x 0.9 x 0.5 cm and 1.6 x 1.2 x 0.8 cm). The smaller piece is trisected and entirely submitted in B1, and the larger piece is quadrisected and entirely submitted in B2 and B3. C. Received in formalin labelled with proper patient identification (initials L, K) and rectal polyp are two desir tissues (0.2 x 0.1 x 0.1 cm and 0.3 x 0.2 x 0.1 cm). Entirely submitted in C1. MIHRAB ALI 02/23/2019 09:24 02/24/2019 12:33 [facility] Scanned Images 02/24/2019 12:33 [facility] Tissue SPECIMEN FROM RECTUM / Unknown 02/22/2019 12:25 EST 02/23/2019 8:36 EST Tissue specimen (specimen) COLON STRUCTURE / Unknown 02/22/2019 12:25 EST 02/23/2019 8:36 EST Tissue specimen (specimen) SPECIMEN FROM RECTUM / Unknown 02/22/2019 12:25 EST 02/23/2019 8:36 EST us Neftali Holley MD PATHOLOGY ORDERABLES Fin al Result [facility] [address] [place] [address] documented in this encounter Visit Diagnoses Diagnosis Encounter for screening for malignant neoplasm of colon Special screening for malignant neoplasms, colon documented in this encounter Care Teams Stakes Player Relationship Specialty Start Date End Date Johann Donald MD PCP - General 01/08/19 documented as of this encounter
--- OUTSIDE RECORDS SUMMARY | 2024-03-01 11:29 | XMS_ITS | Clinical Summary ---
Author Organization [facility] Address [address] [place] [address] Care Team Providers Care Oracle Fusion Middleware Developer Name Role Phone Johann Donald MD Primary Care Provider Social History Tobacco Use Types Packs/Day Years Used Date Smoking Tobacco: Never Assessed Interpersonal Safety Answer Date Record ed Physically Hurt Never 10/11/2019 Verbally Threaten Not on file 10/11/2019 Sex and Gender Information Value Date Recorded Sex Assigned at Not on file Legal Sex Male 8:26 EST Gender Identity Not on file Sexual Orientation Not on file Plan of Treatment Health Maintenance Due Date Last Done Comments Hepatitis C Screen 1960 COVID-19 Vaccine (2023- season) 2023 RSV Immunization ( o r 60+ Years) (1 - 1-dose 75+ series) 07/11/2034 Insurance [facility] Care Teams Oracle Fusion Middleware Developer Relationship Specialty Start Date End Date Johann Donald MD PCP - General 01/08/19
--- OUTSIDE RECORDS SUMMARY | 2024-03-01 11:29 | XMS_ITS | Encounter Summary ---
Author Organization [facility] Address [address] [place] [address] Care Team Providers Care Overcaster Name Role Phone Johann Donald MD Primary Care Provider [phone] Encounter Details Date Type Department Care Team (Late st Contact Info) Description 04/17/2020 Lab Requisition [facility] Pathology & Laboratory Medicine - [facility] [address] [place] [address] Neftali Holley MD [address] [place] [address] [place] [address] Encounter for other general examination Social History Tobacco Use Types Packs/Day Years [...] Date/Time Associated Diagnosis Comments SURGICAL PATHOLOGY Today 04/17/2020 8: 55 EST Encounter for other general examination documented in this encounter Results * SURGICAL PATHOLOGY (04/17/2020 8:55 EST) Final Diagnosis A. COLON, TRANSVERSE, POLYP, BIOPSY: - Tubular adenoma. B. COLON, DESCENDING, POLYP, BIOPSY: - Minute fragment of superficial colonic mucosa. C. COLON, DESCENDING, OLD SITE, BIOPSY: - Colonic mucosa with no significant pathologic abnormality. D. RECTUM, POLYPS, BIOPSY: - Hyperplastic polyps. 04/18/2020 14:44 [facility] Attestation By the signature below, the attending physician certifies that they have 1) personally conducted a gross and/or microscopic examination of the described specimen(s), and/or personally interpreted the results of laboratory testing of the described specimen(s), and 2) personally rendered or confirmed the above diagnosis. 04/18/2020 14:44 [facility] at 1444 Clinical History Hx tubular adenoma, tubulovillous 04/18/2020 14:44 [facility] Gross Description A. Received in formalin labelled with proper patient identification (initials L, K) and transverse colon polyp is a single fragment of desir tissue (0.6 x 0.3 x 0.2 cm). The specimen is submitted in A1. B. Received in formalin labelled with proper patient identification (initials L, K) and descending colon polyp is a scant amount of white tissue (0.3 by less than 0.1 by less than 0.1 cm). The specimen is submitted entirely in B1. C. Received in formalin labelled with proper patient identification (initials L, K) and Bx of old tubular adenoma, tubulovillous (descending) site is a single fragment of desir tissue (0.4 x 0.3 x 0.2 cm). The specimen is submitted in C1. D. Received in formalin labelled with proper patient identification (initials L, K) and rectal polyps are multiple fragments of desir tissue ranging from 0.2-0.5 cm in greatest dimension. The specimens are submitted in D1 ENDY BLAKE(ASCP) 04/17/2020 16:32 04/18/2020 14:44 [facility] Performing Lab [facility] 04/18/2020 14:44 [facility] Scanned Images 04/18/2020 14:44 [facility] Tissue SPECIMEN FROM RECTUM / Unknown 04/17/2020 8:55 EST 04/17/2020 15:59 EST Tissue specimen (specimen) POLYP OF COLON / Unknown 04/17/2020 8:55 EST 04/17/2020 15:59 EST Tissue specimen (specimen) DESCENDING COLON STRUCTURE / Unknown 04/17/2020 8:55 EST 04/17/2020 15:59 EST Tissue specimen (specimen) SPECIMEN FROM RECTUM / Unknown 04/17/2020 8:55 EST 04/17/2020 15:59 EST us Neftali Holley MD PATHOLOGY ORDERABLES Fin al Result [facility] [address] [place] [address] documented in this encounter Visit Diagnoses Diagnosis Encounter for other general examination documented in this encounter Care Teams Overcaster Relationship Specialty Start Date End Date Johann Donald MD PCP - General 01/08/19 documented as of this encounter
--- OUTSIDE RECORDS SUMMARY | 2024-03-01 11:29 | XMS_ITS | Referral Summary ---
Author Organization [facility] Address [address] [place] [address] Care Team Providers Care Wind Power Project Manager Name Role Phone Johann Donald MD Primary [...] Orientation Not on file Plan of Treatment Not on file Insurance [facility] Care Teams Wind Power Project Manager Relationship Specialty Start Date End Date Johann Donald MD PCP - General 01/08/19
--- OUTSIDE RECORDS SUMMARY | 2024-03-01 11:29 | XMS_ITS | Encounter Summary ---
Author Organization [facility] Address [address] [place] [address] Care Team Providers Care Adult Neuropsychologist Name Role Phone Jhoann Donald MD Primary Care Provider [phone] Encounter Details Date Type Department Care Team (Late st Contact Info) Description 04/13/2020 Lab Requisition [facility] Pathology & Laboratory Medicine - [facility] [address] [place], [place] [address] Outr Resulting Lab, Provider Social History Tobacco Use Types Packs/Day [...] Procedure Name Priority Date/Time Associated Diagnosis Comments ZZCOVID-19 TEST [facility] PCR Today 04/13/2020 8:30 EST COVID-19 TESTING Routine 04/13/2020 8:30 EST documented in this encounter Results * COVID-19 TEST [facility] PCR (04/13/2020 8:30 EST) Swab ENTIRE NASOPHARYNX / Unknown 04/13/2020 8:30 EST 04/13/2020 18:00 EST us Provider Outr Resulting Lab MICROBIOLOGY - GENER AL ORDERABLES Final Result Performing Organization Address City/[facility]/ZIP Co de Phone Number [facility] [address] [place] [address] * COVID-19 TESTING (04/13/2020 8:30 EST) COVID-19 rt-PCR Result Negative Negative 04/14/2020 15:24 EST [facility] Comment: This test has not been FDA cleared or approved. This test has been authorized by FDA under an EUA for use by authorized laboratories. This test has been authorized only for detection of nucleic acid from 2019-nCoV, not for any other viruses or pathogens. This test is only authorized for the duration of the declaration that circumstances exist justifying the authorization of emergency use of in vitro diagnostic tests for detection and/or diagnosis of 2019-nCoV under section 564(b)(1) of Act, 21 U.S.C ?? 360bbb-3(b) (1), unless the authorization is terminated or revoked sooner. Negative results do not preclude 2019-nCoV infection and should not be used as the sole basis for treatment or other patient management decisions. Negative results must be combined with clinical observations, patient history, and epidemiological information. This test was developed and its performance characteristics determined by [facility]. It has not been cleared or approved by the US Food and Drug Administration. FDA does not require this test to go through premarket FDA review. This test is used for clinical purposes. It should not be regarded as investigational or for research. This laboratory is certified under the Clinical Laboratory Improvement Amendments (CLIA) as qualified to perform high complexity clinical laboratory testing. This test is based on the [facility] COVID-19 Emergency Use Authorization (EUA) assay, with minor modification as defined by the FDA Performed on the [employer] 7 Flex RT-PCR System. Performing Lab [facility] 04/14/2020 15:24 EST [facility] Swab 04/13/2020 8:30 EST 04/13/2020 18:00 EST us Provider Outr Resulting Lab MICROBIOLOGY - GENER AL ORDERABLES Final Result Performing Organization Address City/[facility]/ZIP Co de Phone Number [facility] [address] [place] [phone] documented in this encounter Visit Diagnoses Not on filedocumented in this encounter Care Teams Adult Neuropsychologist Relationship Specialty Start Date End Date Johann Donald MD PCP - General 01/08/19 documented as of this encounter
[2024-03-01 19:46] LABS: PSA, Screening 0.6 ng/mL (<=4.5)
== END 2024-03-01 11:28 | disposition home or self-care (01) ==
LOC: LBO 11:28
PROVIDERS: PCP Nurse Practitioner Family; Visit Provider Nurse Practitioner Family
DX: Z13.220 Encounter for screening for lipoid disorders (principal); I10 Essential (primary) hypertension; Z13.1 Encounter for screening for diabetes mellitus; Z12.5 Encounter for screening for malignant neoplasm of prostate; Z00.00 Encounter for general adult medical examination without abnormal findings
CPT/HCPCS: 36415; 80061; 84153; 82565; 83036; 84132

== ENCOUNTER 2024-04-26 06:21 | Day surgery (SDC) | payer OTHER, SELFPAY ==
--- NOTE | 2024-04-25 06:13 | PDOC.DSDIS_ITS ---
Date of service: 04/26/24 Discharge Plan Disposition Patient Disposition: Home Condition: Good Discharge Details Reason For Visit: screening colonoscopy Attending Provider: Thaddeus Hernandez Primary Care Provider: Gigi Jade Home Meds and New Rx's Prescriptions: Continued losartan 100 mg tablet 100 mg PO DAILY Qty: 90 3RF hydrochlorothiazide 12.5 mg tablet 12.5 mg PO DAILY Qty: 90 3RF atorvastatin [Lipitor] 10 mg tablet 10 mg PO DAILY Qty: 90 3RF Discontinued bisacodyl [Dulcolax (bisacodyl)] 5 mg tablet,delayed release (DR/EC) 5 mg PO ONCE Qty: 4 0RF Rx Instructions: Take per colonoscopy instructions provided by ordering providers office polyethylene glycol 3350 17 gram/dose powder 17 g PO ONCE Qty: 238 0RF Rx Instructions: Take per colonoscopy instructions provided by ordering providers office Discharge Instructions Instructions: Diverticulosis Additional Instructions: Bolivar, it was very nice meeting you today, and I hope you are comfortable through the colonoscopy, make a quick recovery. Everything went very smoothly. I did not find any polyps today. Incidentally, you do have a fair amount of diverticulosis. Diverticula are weak spots in the muscular layer of the colon wall. This causes the inside lining (also called mucosa) to pouch pucker outwards through them. These little pockets are known as diverticula and the condition of having them is called diverticulosis. They can get infected or inflamed during episodes that we refer to as diverticulitis. However, many many people have these, and are never at all bothered by them. My general recommendation is to maintain a diet that is rich in fiber, stay well-hydrated, and avoid symptoms of constipation. I will attach a little bit of information here about diverticulosis in general. Because of the type of polyps that you had removed previously, I do recommend a 5-year interval for your next colonoscopy. If you have any questions at all, please do not hesitate to ask. 1. If tolerated, consume a soft, low fiber diet for 1-2 days. 2[address] Do not drive, drink alcohol, operate machinery, make critical decisions, or do activities that require coordination or balance for 24 hours. 3. Because air was put into your colon during the procedure, expelling air from your rectum (passing gas or farting) is normal. 4. You may not have a bowel movement for 1-3 days because of the colonoscopy prep. This is normal. 5. Go directly to the emergency room if you notice any of the following: Develop chills (warm to touch), or if you have a thermometer and your temperature is above 101 Difficulty breathing or difficultly swallowing Persistent vomiting Severe abdominal pain, other than gas cramps Severe chest pain Black, tarry stools Any bleeding ? exceeding one tablespoon 6. Call your physician if the site where your intravenous was started becomes red, swollen, painful, and warm to touch. 7. Your physician has reviewed your pre-procedure medications. Please continue to take those medications as previously ordered. You will be given specific information/education regarding any changes to your medications before leaving. Activity:: Activity as Tolerated Diet:: As Tolerated Discharge Orders Discharge Orders: Discharge Order (Routine); Ordered 04/25/24 Ordered By: Thaddeus Hernandez DS: Diagnosis Discharge Diagnosis (1) Encounter for screening colonoscopy: Status: Acute Asessment and Plan: Negative screening colonoscopy today; based on previous adenomatous polyps, 5- year interval
--- NOTE | 2024-04-25 06:14 | COLE_ITS ---
Date of service: 04/26/24 Time of Service: 07:48 Colonoscopy Report Date of procedure: 04/26/24 Pre-op diagnosis general: screening colonoscopy Post-op diagnosis procedure note: other (Diverticulosis otherwise negative screening colonoscopy) Procedure: colonoscopy Surgeon: Thaddeus Hernandez Anesthesia Type: General:No Airway Estimated blood loss (mL): 0 Pathology: none sent Complications: None Disposition: same day Indications: Bolivar is a 63 year old man who needs a screening colonoscopy Prep: Miralax/Dulcolax Procedure Start Time: 07:23 Procedure End Time: 07:38 Retraction Time: 9 Findings: Left-sided diverticulosis Procedure Description: After the induction of anesthesia, and with the patient in left lateral decubitus position, I began by performing an external anorectal exam.? Perineum and skin were normal, as was the anal verge.? This was normal. Next, I performed a digital rectal exam.? I did not appreciate any abnormal findings.? Next, I advanced a colonoscope into the rectal vault.? I performed retroflexion.? This appeared normal.? Using insufflation, I then advanced the colonoscope beyond the rectal folds and into the sigmoid colon before advancing towards the cecum.? There is sigmoid diverticulosis that extends into the descending colon the quality of the prep was excellent.? The scope was noted to be in the cecum by identification of the ileocecal valve and appendiceal orifice.? I then began withdrawing the colonoscope using repeated irrigation as necessary for full evaluation of the colonic mucosa. ?There was a previous area of colonoscopic tattoo.I took several passes across this area. I saw no signs of any recurrence, or other polyps. Once the scope was withdrawn to the level of the rectum, great care was taken to examine portions of the rectal folds.? Finally, the scope was withdrawn and the patient was brought to the same-day surgery recovery unit as the anesthetic wore off. ?The findings and instructions were shared with the patient prior to discharge. [place] Bowel Prep [place] Bowel Prep Right Colon: 2 Left Colon: 3 Transverse Colon: 3 Total Score: 8
--- NOTE | 2024-04-25 18:06 | W.ANESPRE ---
General Info Date of Service Date Performed: 04/26/24 Height: 5 ft 7 in Weight: 131.088 kg Body Mass Index (BMI): 45.2 Surgical Procedure: Operation Date: 04/26/24 07:35 Proposed Procedure Side Surgeon p Colonoscopy Thaddeus Hernandez MD Meds Allergies and Home Medications Allergies Allergy/AdvReac Type Severity Reaction Status Date / Time LORENZO Inhibitors AdvReac cough Verified 04/26/24 06:34 Home Medication ?Medication ?Instructions ?Recorded losartan 100 mg tablet 100 mg PO DAILY #90 tabs 05/16/23 hydrochlorothiazide 12.5 mg tablet 12.5 mg PO DAILY #90 tabs 08/01/23 atorvastatin 10 mg tablet (Lipitor) 10 mg PO DAILY #90 tab-caps 08/25/23 Current Visit Medications: Current Medications Generic Name Dose Route Start Last Admin Trade Name Freq PRN Reason Stop Dose Admin Ringer's Solution 1,000 mls @ 80 mls/hr 04/26/24 06:00 IV 04/26/24 23:59 INFUSION KADEN IV Miscellaneous Supplies 1 each 04/26/24 06:00 Iv Access IV 04/26/24 23:59 DIRECTED KADEN Ondansetron HCl 4 mg 04/25/24 06:15 Ondansetron 4 Mg/2 Ml Vial IVP 05/25/24 06:14 Q4H PRN PRN Nausea / Vomiting Sodium Chloride 0 ml 04/26/24 06:00 Normal Saline Flush 10 Ml Syr IV 04/26/24 23:59 PRN PRN Sodium Chloride 0 ml 04/26/24 06:00 Normal Saline 10 Ml Vial IJ 04/26/24 23:59 DIRECTED PRN Sterile Water 0 ml 04/26/24 06:00 Water,Injection,Sterile 10 Ml Vial IJ 04/26/24 23:59 DIRECTED PRN PFSH Active Problems Active Problems: Problem Status Onset Code Encounter for screening colonoscopy Acute Z12.11 Back injury Acute S39.92XA Hypertension Chronic I10 Tubular adenoma of colon Acute D12.6 Hyperplastic colon polyp Acute K63.5 Colorectal polyps Acute K63.5 Erectile dysfunction Acute 10/31/14 N52.9 Hypercholesterolemia Acute E78.00 Obesity Acute 09/23/12 E66.9 Medical History Medical History Arthritis of right acromioclavicular joint Bursitis of right shoulder Diverticulosis large intestine w/o perforation or abscess w/o bleeding Impingement syndrome of right shoulder Internal hemorrhoids without complication Tendonitis of long head of biceps brachii of right shoulder Traumatic tear of right rotator cuff Surgical History Surgical History S/P arthroscopy of right shoulder (11/10/20) S/P colonoscopy (~02/22/19) 02/25 - tubular adenoma, tubulovillous adenoma Tobacco Smoking/Tobacco Use Status: Never Passive smoking exposure: No Second hand exposure: No Alcohol Alcohol Intake: current Alcohol intake frequency: 0-2 drinks per day Alcohol type: hard liquor Substance Use Substance use: Never Substance use type: does not use Vital Signs and Lab Results Vital Signs Most Recent Vital Signs in EMR: Temp Pulse Resp BP Pulse Ox 36.4 C L 62 18 148/75 H 96 04/26/24 06:20 04/26/24 06:20 04/26/24 06:20 04/26/24 06:20 04/26/24 06:20 Lab Results Blood Type / Crossmatch: No Data to Display Complete Blood Count: No Data to Display Complete Metabolic Panel: No Data to Display Liver Function Panel: No Data to Display Coagulation Panel: No Data to Display Cardiac Panel: No Data to Display Arterial Blood Gas: No Data to Display Venous Blood Gas: No Data to Display Pancreas Panel: No Data to Display Thyroid Panel: No Data to Display Infectious Disease: No Data to Display Blood Cultures: No Data to Display Toxicology Panel: No Data to Display Anesthesia Assessment and Plan Anesthesia History Personal History: No History of Anesthesia Complications Family History: No Family History of Anesthesia Complications Exercise Tolerance Exercise Tolerance: Metabolic Equivalents>4 Cardiac & Pulmonary Exam Cardiac Exam: Normal S1/S2 Heart Sounds Pulmonary Exam: Clear Bilateral Breath Sounds Implantable Cardiac Device Does patient have a Pacemaker or an ICD?: No Airway Exam Known Difficult Airway: No Mallampati Class: 2 Mouth Opening: Normal (> 3cm) Thyromental Distance: Greater than 3 cm Neck Range of Motion: Full ROM Neck Circumference: Normal Teeth Condition: Normal Dentition ASA Classification ASA Score: ASA 3 Emergency Case?: No NPO Status NPO Status: NPO Clears >2 hours, Solids >8 hours Anesthesia Plan Resuscitation Status: Full Code Anesthesia Technique: General Anesthesia Airway Planned: Natural Airway Monitors Used: Standard Monitors Preoperative Comments:: 63 yo male for colo. Sig PMHx: HTN (does not check at home), never smoker. Denies reflux/GERD. Appropriately NPO. EKG: sinus. Previous Anesthesia: - shoulder, Mac 4, grade 1, masked with OPA. - colo, atropine, prop, natural airway. - colo, lindsey/asystole with scope advancement, green tinge on pillow with wake up.
[2024-04-26 06:20] VITALS: BP 148/75; PULSE 62; RESP 18; TEMP 36.4; O2SAT 96
[2024-04-26 06:49] VITALS: BMI 45.2
[2024-04-26] MEDS: Lactated Ringers 1,000 ML 80 ML IV (06:56)
[2024-04-26 07:41] VITALS: BP 106/62; PULSE 59; RESP 16; TEMP 36.3; O2SAT 94
--- NOTE | 2024-04-26 08:03 | W.ANESPOSTOP ---
Postoperative Evaluation Date, Time and Location Date Performed: 04/26/24 Time Performed: 08:03 Patient Location: Day Surgery Unit Vital Signs Most Recent Imported Vital Signs: Most Recent Vital Signs Temp Pulse Resp BP Pulse Ox 36.3 C L 59 L 16 106/62 94 04/26/24 07:41 04/26/24 07:41 04/26/24 07:41 04/26/24 07:41 04/26/24 07:41 Pain Score Most Recent Pain Score: Most Recent Pain Score Pain Level 0 04/26/24 07:41 Assessment Mental Status: Awake (Alert & Oriented to Patient Baseline) Airway and Respiratory Function: Patent airway with normal (patient baseline) respiratory exam Cardiovascular Function: Hemodynamically Stable Hydration Status: Adequately Hydrated Nausea & Vomiting: No Nausea or Vomiting Pain: Pt. Denies Any Pain Peripheral Nerve Block: Patient did not receive a nerve block
[2024-04-26 08:15] VITALS: BP 130/66; PULSE 59; RESP 16; TEMP 36.2; O2SAT 98
== END 2024-04-26 08:19 | disposition home or self-care (01) ==
LOC: SUR 06:21
PROVIDERS: PCP Nurse Practitioner Family; Visit Provider Surgery
PROC: 0DJD8ZZ Inspection of Lower Intestinal Tract, Via Natural or Artificial Opening Endoscopic (ICD-10-PCS; CPT 45378; principal; 2024-04-26 07:30)
DX: Z12.11 Encounter for screening for malignant neoplasm of colon (principal); K57.30 Diverticulosis of large intestine without perforation or abscess without bleeding; I10 Essential (primary) hypertension
CPT/HCPCS: 45378; J2250; J2405; J2704